=== PATIENT | female | born 1960 | race Caucasian/White ===

== ENCOUNTER 2018-02-15 22:47 | Emergency (ER) | payer BC, OTHER ==
[2018-02-15 22:50] VITALS: BP 151/85; PULSE 69; TEMP 98.1; BMI 34.0
--- NOTE | 2018-02-15 23:21 | PDOC ---
History of Present Illness - General Chief Complaint: Pain Stated Complaint: ABDOMINAL PAIN Time Seen by Provider: 02/15/18 23:18 History Source: Patient Exam Limitations: No Limitations - History of Present Illness Initial Comments: Ms. Gonzalez is a 57 yo F with no pertinent past medical hx who presents to the emergency department with RLQ pain that began at 6pm. She states it was a sudden onset that comes and goes with severity currently at 6/10 (8/10 prior to 800 mg motrin dose just prior to ED visit). She states the pain radiates to her right flank and she has associative dysuria for the past 2 days, but denies fever, chills, vomiting, hematuria, vaginal discharge/blood, melena, and hematochezia. She has had chronic lower abdominal bilaterally for years. Her pain worsens with urinating. Past History - Past Medical History Allergies/Adverse Reactions: Allergies Allergy/AdvReac Type Severity Reaction Status Date / Time No Known Allergies Allergy Unverified 02/15/18 22:50 Home Medications: Ambulatory Orders Cephalexin Monohydrate [Keflex -] 500 mg PO BID #14 capsule 02/16/18 COPD: No - Suicide/Smoking/Psychosocial Hx Smoking History: Never smoked *Physical Exam - Vital Signs Last Vital Signs Temp Pulse Resp BP Pulse Ox 98.1 F 69 18 151/85 99 02/15/18 22:48 02/15/18 22:48 02/15/18 22:48 02/15/18 22:48 02/15/18 22:48 ED Treatment Course - LABORATORY CBC & Chemistry Diagram: 02/16/18 00:09 02/16/18 00:09 *DC/Admit/Observation/Transfer Diagnosis at time of Disposition: UTI (urinary tract infection) Qualifiers: Urinary tract infection type: site unspecified Hematuria presence: without hematuria Qualified Code(s): N39.0 - Urinary tract infection, site not specified - Discharge Dispostion Disposition: HOME Decision to Admit order: No - Prescriptions Prescriptions: Cephalexin Monohydrate [Keflex -] 500 mg PO BID #14 capsule - Referrals Referrals: Henrique Hayden MD [Primary Care Provider] - - Patient Instructions Printed Discharge Instructions: DI for Urinary Tract Infection (UTI) Additional Instructions: You have been seen in the emergency department for the evaluation of the lower right abdominal pain. Our CT abdomen and pelvis showed no acute pathologies. Your urine showed an infection. We are prescribing you keflex to be taken twice a day for 7 days. Please complete this course. Please follow up with your primary medical doctor within 24-36 hours for follow up care and management. Please return to the emergency department if you have worsening of symptoms or develop new concerning symptoms such as development of fever and chills. Please stay hydrated. - Post Discharge Activity Forms/Work/School Notes: Back to Work
[2018-02-15 23:47] LABS: URINE APPEARANCE CLEAR; URINE BILIRUBIN NEGATIVE (<2.0 mg/dL); URINE COLOR LTYELLOW; URINE GLUCOSE (UA) NEGATIVE (NEGATIVE); URINE KETONE NEGATIVE (NEGATIVE); URINE NITRITE NEGATIVE (NEGATIVE); URINE PROTEIN NEGATIVE (NEGATIVE); URINE UROBILINOGEN NEGATIVE mg/dL (0.2-1.0)
[2018-02-15 23:48] LABS: URINE LEUK ESTERASE 2+ (NEGATIVE)
[2018-02-15 23:49] LABS: EPI CELLS RARE /HPF (FEW); URINE BACTERIA RARE /hpf (NONE SEEN); URINE MUCUS RARE
--- NOTE | 2018-02-16 00:05 | PDOC ---
Attending Attestation - Resident Resident Name: Sancho Fournier - ED Attending Attestation I have performed the following: I have examined & evaluated the patient, The case was reviewed & discussed with the resident, I agree w/resident's findings & plan, Exceptions are as noted - HPI HPI: 02/16/18 00:04 57 yo female p/w RLQ pain since 6pm tonight - Physicial Exam PE: 02/16/18 01:08 wnwd 57 yo female with abdominal pain head ncat neck supple lungs cta b/l cvs [id number] abd RLQ pain no cva tenderness no lumbar vertebral tenderness ext no edema,no erythema neuro axox3, ambulatory skin warm and dry - Medical Decision Making 02/16/18 01:28 ct scan abd/pel did not show any appendicitis UA + UTI started on antibiotics
[2018-02-16] MEDS ORDERED: SODIUM CHLORIDE 1,000 ML IV STA (00:07)
[2018-02-16 00:26] LABS: BASO % 0.3 % (0-2.0); EOS % 2.1 % (0-4.5); HEMATOCRIT 37.9 % (32.4-45.2); LYMPH % 34.7 % (8-40); MCH 28.6 pg (25.7-33.7); MCHC 34.2 g/dl (32.0-36.0); MEAN CELL VOLUME 83.8 fl (80-96); MEAN PLT VOLUME 8.4 fl (7.5-11.1); MONO % 6.1 % (3.8-10.2); NEUT % 56.8 % (42.8-82.8); PLATELET COUNT 300 K/MM3 (134-434); RBC 4.52 M/mm3 (3.60-5.2); RDW 12.8 % (11.6-15.6)
[2018-02-16 00:46] LABS: ALBUMIN 3.5 g/dl (3.4-5.0); ANION GAP 8 MMOL/L (8-16); BILIRUBIN,TOTAL 0.3 mg/dL (0.2-1.0); BLOOD UREA NITROGEN 19 mg/dL (7-18); CHLORIDE 106 mmol/L (98-107); CO2 31 mmol/L (21-32); CREATININE 0.7 mg/dL (0.55-1.3); GLUCOSE,RANDOM 119 mg/dL (74-106); SGOT/AST 17 U/L (15-37); SGPT/ALT 26 U/L (13-61); SODIUM 145 mmol/L (136-145); TOT PROT 7.3 g/dl (6.4-8.2)
[2018-02-16 00:47] LABS: ALK PHOS 134 U/L (45-117)
[2018-02-16] MEDS ORDERED: CEPHALEXIN MONOHYDRATE 500 MG CAPSULE (UD) PO ONE (01:36)
[2018-02-16] MEDS ORDERED: CEPHALEXIN MONOHYDRATE 500 MG CAPSULE (UD) ONE (01:38)
== END 2018-02-16 01:52 | disposition home or self-care (01) ==
LOC: JER 22:47
PROC: 3E0337Z Introduction of Electrolytic and Water Balance Substance into Peripheral Vein, Percutaneous Approach (ICD-10-PCS; principal; 2018-02-15)
DX: N39.0 Urinary tract infection, site not specified (principal)
CPT/HCPCS: 36415; 74177-TC; 80053; 81003; 81015; 85025; 87086; 99283-25; J7030